=== PATIENT | male | born 1960 | race Caucasian/White ===

== ENCOUNTER 2024-05-06 08:30 | Day surgery (SDC) | payer OTHER ==
[~2024-05-06] VITALS: Ht 170.2 cm; Wt 89.4 kg
[2024-05-06] MEDS ORDERED: MEPERIDINE 100 MG INJ. 100 MG/ML VIAL ONE (09:40)
[2024-05-06] MEDS ORDERED: MIDAZOLAM HCL 5 MG/5 ML VIAL ONE (09:40)
[2024-05-06 12:50] VITALS: O2SAT 96
[2024-05-06 19:07] VITALS: BP_SYST 104; PULSE 72; RESP 11
== END 2024-05-06 13:06 | disposition home or self-care (01) ==
LOC: SDS 08:30 → SMU 08:31 → SDS 13:06
PROVIDERS: ATTEND Internal Medicine Gastroenterology
DX: Z12.11 Encounter for screening for malignant neoplasm of colon (principal); D12.2 Benign neoplasm of ascending colon; D12.3 Benign neoplasm of transverse colon; D12.5 Benign neoplasm of sigmoid colon; K57.30 Diverticulosis of large intestine without perforation or abscess without bleeding; K64.9 Unspecified hemorrhoids; K21.9 Gastro-esophageal reflux disease without esophagitis; Z79.899 Other long term (current) drug therapy
CPT/HCPCS: 45385; 45380; 88305; 99153; 99152; G0378; J2250; J2175